=== PATIENT | male | born 1995 | race Caucasian/White ===

== ENCOUNTER 2022-04-08 13:11 | Emergency (ER) | payer SELFPAY ==
[~2022-04-08] VITALS: Ht 177.8 cm; Wt 75.8 kg
[~2022-04-08 13:11] MED LIST: HYDR-4833 GT
[2022-04-08] MEDS ORDERED: KETOROLAC TROMETH 60MG/2ML VIAL IM ONE (16:15)
[2022-04-08 16:29] VITALS: BP 139/88
[2022-04-08] MEDS ORDERED: ACET-1158 PO (17:33)
[2022-04-08] MEDS ORDERED: IBUP800T26 PO (17:33)
== END 2022-04-08 17:39 | disposition home or self-care (01) ==
LOC: ER 13:11
DX: S93.402A Sprain of unspecified ligament of left ankle, initial encounter (principal); X50.1XXA Overexertion from prolonged static or awkward postures, initial encounter; Y93.89 Activity, other specified; Y92.89 Other specified places as the place of occurrence of the external cause; Y99.8 Other external cause status
CPT/HCPCS: 73610; 96372; 99283; J1885

== ENCOUNTER 2022-12-03 14:41 | Emergency (ER) | payer MEDICAID ==
[~2022-12-03] VITALS: Ht 177.8 cm; Wt 77.0 kg
[~2022-12-03 14:41] MED LIST changes: +ACET500T58 PO; +IBUP-1455 PO
[2022-12-03 14:56] VITALS: BP 122/72; PULSE 100; RESP 18; TEMP 98.1; O2SAT 100
[2022-12-03] MEDS ORDERED: KETOROLAC TROMETH 30 MG/ML 1ML VIAL IM ONE (16:15)
== END 2022-12-03 17:10 | disposition home or self-care (01) ==
LOC: ER 14:41
DX: S93.601A Unspecified sprain of right foot, initial encounter (principal); Z79.1 Long term (current) use of non-steroidal anti-inflammatories (NSAID); Z79.899 Other long term (current) drug therapy; X58.XXXA Exposure to other specified factors, initial encounter; Y93.89 Activity, other specified; Y92.89 Other specified places as the place of occurrence of the external cause; Y99.8 Other external cause status
CPT/HCPCS: 73620; 96372; 99283; J1885